=== PATIENT | male | born 1970 | race Caucasian/White ===

== ENCOUNTER 2020-10-14 16:32 | Emergency (ER) | payer BC ==
[2020-10-14] MEDS ORDERED: Diphtheria,Pertussis(Acell),Tetanus Vaccine 0.5 ML Syringe IM ONE (17:22)
--- NOTE | 2020-10-14 18:43 | CR ---
INDICATION: Pain after laceration. COMPARISON: None available. TECHNIQUE: The right knee was examined with AP, lateral, and sunrise views for a total of three views. FINDINGS: There is no sign of fracture or dislocation. There is mild primary osteoarthritis of the medial joint compartment with mild medial joint space narrowing and mild marginal osteophyte formation. There is no sign of osteoarthritis of the lateral and patellofemoral joint compartments. There is mild ossification of the medial proximal tibia inferior to the tibial plateau, probably a healed tug injury. There is mild ossification of the insertion of the quadriceps tendon on the anterior superior patella. There is no sign of a joint effusion. No soft tissue abnormality is seen. There is no sign of any soft tissue abnormality related to the laceration and there is no sign of any foreign body. IMPRESSION: No sign of acute osseous injury. No sign of definite soft tissue injury. 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 Dictated by Lawrence Beaver MD @ 10/14/2020 6:41:[address] Lawrence Beaver @ Oct 14 2020 6:41PM
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
[2020-10-14] MEDS ORDERED: Bacitracin Oint 1 GM U/D Packet TOP ONE (19:23)
== END 2020-10-14 19:57 | disposition home or self-care (01) ==
LOC: MW.ED 16:32
DX: S81.011A Laceration without foreign body, right knee, initial encounter (principal); V86.59XA Driver of other special all-terrain or other off-road motor vehicle injured in nontraffic accident, initial encounter
CPT/HCPCS: 12002; 73562-26-RT; 73562-RT; 90471; 90715; 99283; 99283-25